=== PATIENT | female | born 1990 | race African-American/Black ===

== ENCOUNTER 2018-12-05 14:49 | Emergency (ER) | payer MEDICAID ==
[~2018-12-05] VITALS: Ht 157.5 cm; Wt 52.0 kg
[~2018-12-05 14:49] MED LIST: ALBUTEROL
[2018-12-05] MEDS ORDERED: SODIUM CHLORIDE 0.9% 1,000 ML IV ONE (16:57)
[2018-12-05] MEDS ORDERED: ONDANSETRON HCL 4MG/2ML INJ IV STA (16:57)
[2018-12-05] MEDS ORDERED: KETOROLAC 30MG/ML VIAL IV STA (16:57)
[2018-12-05 17:24] LABS: CLARITY URINE CLOUDY (CLEAR); COLOR URINE YELLOW (YELLOW); KETONES URINE 3+ (NEGATIVE); LEUKOCYTE ESTERASE URINE TRACE (NEGATIVE); NITRITE URINE NEGATIVE (NEGATIVE); OCCULT BLOOD URINE TRACE (NEGATIVE); PROTEIN URINE NEGATIVE (NEGATIVE); SPECIFIC GRAVITY URINE 1.013 (1.005-1.030)
[2018-12-05 17:26] LABS: CHLORIDE 105 mEq/L (98-107)
[2018-12-05 17:28] LABS: BASOPHILS % 0.8 % (0.0-2.0); EOSINOPHILS % 0.1 % (0.0-5.0); HEMATOCRIT. 37.6 % (36.0-48.0); HEMOGLOBIN. 12.8 g/dL (12.0-16.0); LYMPHOCYTES % 18.6 % (20.0-50.0); MEAN CORPUSCULAR HEMOGLOBIN 29.2 pg (28.0-32.0); MONOCYTES % 10.8 % (2.0-8.0); NEUTROPHILS % 69.7 % (40.0-76.0); PLATELET 141 x1000/uL (130-400); RED BLOOD CELL COUNT 4.37 mill/uL (4.2-5.4); RED CELL DISTRIBUTION WIDTH 14.3 % (11.6-14.6)
[2018-12-05 18:22] VITALS: BP 115/58
[2018-12-05] MEDS ORDERED: CEFTRIAXONE 1 G PREMIX 50 ML IV ONE (18:30)
== END 2018-12-05 19:33 | disposition home or self-care (01) ==
LOC: ER 14:49
DX: N39.0 Urinary tract infection, site not specified (principal); J06.9 Acute upper respiratory infection, unspecified; M60.9 Myositis, unspecified; J45.909 Unspecified asthma, uncomplicated
CPT/HCPCS: 36415; 71045; 80053; 81003; 81025; 85025; 87070; 87077; 87430; 87804; 96361; 96365; 96375; 99284; J0696; J1885; J7030

== ENCOUNTER 2020-02-02 05:44 | Emergency (ER) | payer MEDICAID ==
[~2020-02-02] VITALS: Ht 152.4 cm; Wt 45.0 kg
[2020-02-02] MEDS ORDERED: MORPHINE SULFATE 4 MG/ML CPJ (NOT FOR IM USE) IV STA (06:03)
[2020-02-02] MEDS ORDERED: ONDANSETRON HCL 4MG/2ML INJ IV STA (06:03)
[2020-02-02 06:35] LABS: HEMATOCRIT. 37.6 % (36.0-48.0); HEMOGLOBIN. 12.8 g/dL (12.0-16.0); MEAN CORPUSCULAR HEMOGLOBIN 29.5 pg (28.0-32.0); MEAN CORPUSCULAR VOLUME 86.6 fL (81.0-99.0); MEAN PLATELET VOLUME 9.7 fl (7.4-10.4); PLATELET 151 x1000/uL (130-400); RED BLOOD CELL COUNT 4.35 mill/uL (4.2-5.4)
[2020-02-02 06:38] LABS: CHLORIDE 104 mEq/L (98-107)
[2020-02-02 06:40] LABS: INR 1.4; PROTHROMBIN TIME 14.1 sec (9.6-11.0)
[2020-02-02 06:42] LABS: HCG SCREEN NEGATIVE
[2020-02-02] MEDS ORDERED: SODIUM CHLORIDE 0.9% 1000ML BAG (SEPSIS BOLUS) IV ONE (07:30)
[2020-02-02] MEDS ORDERED: CEFTRIAXONE 1 G PREMIX 50 ML IV ONE (07:30)
[2020-02-02] MEDS ORDERED: ACETAMINOPHEN 500MG TABLET PO ONE (07:30)
[2020-02-02] MEDS ORDERED: IOHEXOL-300 100 ML BOTTLE ONE (07:44)
[2020-02-02 08:22] LABS: PLATELET ESTIMATE NORMAL
[2020-02-02] MEDS ORDERED: MORPHINE SULFATE 4 MG/ML CPJ (NOT FOR IM USE) IV ONE (08:45)
[2020-02-02 09:03] LABS: COLOR URINE YELLOW (YELLOW); KETONES URINE NEGATIVE (NEGATIVE); LEUKOCYTE ESTERASE URINE 2+ (NEGATIVE); NITRITE URINE NEGATIVE (NEGATIVE); OCCULT BLOOD URINE 1+ (NEGATIVE); PH URINE 6.5 (4.5-8.0); PROTEIN URINE NEGATIVE (NEGATIVE); SPECIFIC GRAVITY URINE 1.035 (1.005-1.030); UROBILINOGEN URINE 0.2 E.U./dL (0.2-1.0)
[2020-02-02 09:05] LABS: CLARITY URINE SL HAZY (CLEAR)
[2020-02-02] MEDS ORDERED: SODIUM CHLORIDE 0.9% 1,000 ML IV ONE (09:06)
[2020-02-02] MEDS ORDERED: DOXYCYCLINE HYCLATE 100 MG/VIAL IV ONE (09:45)
[2020-02-02] MEDS ORDERED: METRONIDAZOLE 500 MG PREMIX 100 ML IV ONE (09:45)
[2020-02-02] MEDS ORDERED: DOXYCYCLINE 100MG in DEXTROSE 5% WATER 100ML IV ONE (10:00)
[2020-02-02 10:02] LABS: *AMPHETAMINES SCREEN URINE NEGATIVE (NEGATIVE); *BARBITURATES SCREEN URINE NEGATIVE (NEGATIVE); *BENZODIAZEPINES SCREEN URINE NEGATIVE (NEGATIVE); *COCAINE SCREEN URINE NEGATIVE (NEGATIVE); METHADONE URINE SCREEN NEGATIVE (NEGATIVE)
[2020-02-02 10:03] LABS: PHENCYCLIDINE URINE SCREEN NEGATIVE (NEGATIVE)
[2020-02-02 10:05] LABS: CANNABINOID URINE SCREEN PRESUMTIVE POSITIVE (NEGATIVE)
[2020-02-02 10:06] LABS: OPIATES URINE SCREEN PRESUMTIVE POSITIVE (NEGATIVE)
[2020-02-02 12:20] VITALS: BP 126/91
== END 2020-02-02 12:40 | disposition short-term general hospital (02) ==
LOC: ER 05:44 → CANBEDREQ 14:20
DX: A41.9 Sepsis, unspecified organism (principal); N39.0 Urinary tract infection, site not specified; R50.9 Fever, unspecified; R00.0 Tachycardia, unspecified; F12.10 Cannabis abuse, uncomplicated; J45.909 Unspecified asthma, uncomplicated
CPT/HCPCS: 36415; 74177; 76830; 76856; 80053; 80305; 81003; 83605; 83690; 84703; 85025; 85610; 93005; 96361; 96365; 96366; 96367; 96375; 96376; 99291; J0696; J2270; J2405; J3490; J7060; Q9967